=== PATIENT | female | born 1965 | race Caucasian/White ===

== ENCOUNTER 2019-11-11 06:02 | Day surgery (SDC) | payer OTHER ==
[~2019-11-11] VITALS: Ht 154.9 cm; Wt 90.7 kg
[2019-11-11 06:23] VITALS: BP 148/97
[2019-11-11 09:51] VITALS: BP 124/85
== END 2019-11-11 09:35 | disposition home or self-care (01) ==
LOC: DS 06:02 → GI 07:30 → OR 07:30 → DS 09:35
PROVIDERS: ATTEND Internal Medicine
DX: R13.10 Dysphagia, unspecified (principal); K31.9 Disease of stomach and duodenum, unspecified; K29.50 Unspecified chronic gastritis without bleeding; K21.0 Gastro-esophageal reflux disease with esophagitis; J05.10 Acute epiglottitis without obstruction; K44.9 Diaphragmatic hernia without obstruction or gangrene; I10 Essential (primary) hypertension; E07.9 Disorder of thyroid, unspecified; Z11.59 Encounter for screening for other viral diseases; Z82.5 Family history of asthma and other chronic lower respiratory diseases; Z80.8 Family history of malignant neoplasm of other organs or systems
CPT/HCPCS: 43235; J1200; J1610; J2250; J2310; J3010; J3490; U0003-CS